=== PATIENT | male | born 1970 | race Caucasian/White ===

== ENCOUNTER 2017-10-04 06:48 | Observation (INO) | payer BC ==
[~2017-10-04] VITALS: Ht 177.8 cm; Wt 118.0 kg
[~2017-10-04 06:48] MED LIST: PRINZIDE 12.5 M1 TA1 PO
[2017-10-04 07:43] LABS: BASO # 0.1 (0.0-0.2); BASO % 0.9 % (0.0-2.0); EOS # 0.2 (0.0-0.7); EOS % 2.7 % (0-4.0); GRAN # 4.2 (1.4-6.5); GRAN % 51.2 % (42.2-75.2); HEMATOCRIT 43.9 % (42.0-52.0); HEMOGLOBIN 15.6 g/dl (13.5-18.0); LYMPH # 2.8 (1.2-3.4); LYMPH % 34.4 % (20.0-51.0); MEAN CELL VOLUME 88 fl (80.0-100.0); MEAN CORPUSCULAR HEMOGLOBIN 31 pg (27.0-31.0); MEAN CORPUSCULAR HGB CONC 36 g/dl (33.0-37.0); MEAN PLATELET VOLUME 9.1 fl (7.4-10.4); MONO # 0.8 (0.1-0.6); MONO % 9.8 % (1.7-9.3); PLATELET COUNT 253 K/mm3 (130-400); RED BLOOD COUNT 4.98 M/mm3 (4.20-5.60)
[2017-10-04 07:54] LABS: ALANINE AMINOTRANSFERASE 57 U/L (21-72); ALBUMIN 3.7 gm/dL (3.5-5.0); ALKALINE PHOSPHATASE 49 U/L (50-136); ANION GAP 11 mmol/L (7-16); AST,SGOT 42 U/L (15-37); BILIRUBIN,TOTAL 0.9 mg/dL (0.0-1.0); BLOOD UREA NITROGEN 21 mg/dL (9-20); CALCIUM 8.9 mg/dL (8.4-10.2); CARBON DIOXIDE 24 mmol/L (22-30); CHLORIDE 100 mmol/L (98-107); CREATININE, serum 0.88 mg/dL (0.66-1.25); GLUCOSE 107 mg/dL (74-106); POTASSIUM 3.5 mmol/L (3.4-5.0); SODIUM 135 mmol/L (137-145); TOTAL PROTEIN 7.2 gm/dL (6.4-8.2)
[2017-10-04 08:09] LABS: TROPONIN-I < 0.012 ng/mL (0.000-0.034)
[2017-10-04 09:21] VITALS: BP 108/68; PULSE 70; TEMP 98.1
[2017-10-04 09:37] LABS: PROTHROMBIN TIME 11.4 SECONDS (9.7-12.8)
[2017-10-04 12:00] VITALS: BP 109/62; PULSE 82; TEMP 98.1
[2017-10-04 13:32] VITALS: BP 110/69
[2017-10-04 13:33] VITALS: BP 98/61
[2017-10-04 13:38] VITALS: BP 120/74
[2017-10-04 16:34] VITALS: BP 110/70; PULSE 89; TEMP 98
== END 2017-10-04 17:09 | disposition home or self-care (01) ==
LOC: COL.ER 06:48 → MEDICAL 07:51
PROVIDERS: Emergency Medicine; Family Medicine
DX: R55 Syncope and collapse (principal); I10 Essential (primary) hypertension; G47.33 Obstructive sleep apnea (adult) (pediatric); Z87.891 Personal history of nicotine dependence; Z82.49 Family history of ischemic heart disease and other diseases of the circulatory system; Z82.3 Family history of stroke
CPT/HCPCS: G0378; J7030; Q9967

== ENCOUNTER 2021-07-05 12:26 | Outpatient (RCR) | payer OTHER | END 2021-07-22 | disposition home or self-care (01) | LOC: WSOH | DX: L24.2 Irritant contact dermatitis due to solvents (principal); I10 Essential (primary) hypertension; Z77.098 Contact with and (suspected) exposure to other hazardous, chiefly nonmedicinal, chemicals; Y99.0 Civilian activity done for income or pay; Z90.89 Acquired absence of other organs ==